=== PATIENT | female | born 1955 | race Caucasian/White ===

== ENCOUNTER 2016-10-06 09:03 | Emergency (ER) | payer OTHER, BC ==
[2016-10-06 09:37] VITALS: BP 147/78; PULSE 86; TEMP 98.3; BMI 25.4
--- NOTE | 2016-10-06 10:44 | PDOC ---
History of Present Illness - General Chief Complaint: Injury Stated Complaint: FALL, HEADACHE Time Seen by Provider: 10/06/16 09:52 History Source: Patient Exam Limitations: No Limitations - History of Present Illness Initial Comments: 10/06/16 10:39 CC fell on ice today; hitting back of head, no LOC Occurred: reports: this morning Severity: reports: mild Pain Location: reports: head Past History - Past Medical History Allergies/Adverse Reactions: Allergies Allergy/AdvReac Type Severity Reaction Status Date / Time No Known Allergies Allergy Verified 10/06/16 09:37 Cancer: Yes (lt breast) - Immunization History Immunization Up to Date: Yes (no flu) - Psycho/Social/Smoking Cessation Hx Anxiety: No Suicidal Ideation: No Smoking History: Former smoker Have you smoked in the past 12 months: No Information on smoking cessation initiated: No Hx Alcohol Use: No Drug/Substance Use Hx: No Substance Use Type: None Review of Systems - Review of Systems Constitutional: No: Chills, Fever, Malaise HEENTM: No: Blurred Vision, Recent change in vision, Double Vision, Cataracts Respiratory: No: Symptoms reported, Cough Cardiac (ROS): No: Symptoms Reported Musculoskeletal: Yes: Joint Pain Integumentary: No: Symptoms Reported Neurological: No: Headache, Numbness, Paresthesia, Pre-Existing Deficit, Tingling, Weakness *Physical Exam - Vital Signs Last Vital Signs Temp Pulse Resp BP Pulse Ox 98.3 F 86 20 147/78 98 10/06/16 09:34 10/06/16 09:34 10/06/16 09:34 10/06/16 09:34 10/06/16 09:34 - Physical Exam General Appearance: Yes: Appropriately Dressed, Apparent Distress HEENT: positive: TMs Normal, Other (FROM TMJ; mild STS to left occiput sclap, no skull deformity noted) Neck: positive: Supple. negative: Tender, Rigid, Tender lateral, Tender midline Respiratory/Chest: positive: Lungs Clear. negative: Chest Tender Musculoskeletal: positive: Other (no palp tenderness to right hip, ambulates well) Medical Decision Making - Medical Decision Making 10/06/16 10:42 reviewed danger signals with pt ; no imaging at this time *DC/Admit/Observation/Transfer Diagnosis at time of Disposition: Contusion of right hip, initial encounter Qualifiers: Encounter type: initial encounter Qualified Code(s): S70.01XA - Contusion of right hip, initial encounter Contusion of scalp, initial encounter Qualifiers: Encounter type: initial encounter Qualified Code(s): S00.03XA - Contusion of scalp, initial encounter Minor head injury without loss of consciousness Qualifiers: Encounter type: initial encounter Qualified Code(s): S09.90XA - Unspecified injury of head, initial encounter - Discharge Dispostion Disposition: HOME Condition at time of disposition: Stable Admit: No - Patient Instructions Additional Instructions: PLEASE RETURN FOR ANY NEW SYMPTOMS - Post Discharge Activity Work/School Note: Back to Work
[2016-10-06] MEDS ORDERED: IBUPROFEN 400 MG TABLET (FP) PO ONE ×2 (10:48→10:49)
== END 2016-10-06 10:49 | disposition home or self-care (01) ==
LOC: JERFT 09:03
DX: S00.03XA Contusion of scalp, initial encounter (principal); S70.01XA Contusion of right hip, initial encounter; W00.0XXA Fall on same level due to ice and snow, initial encounter; Y93.89 Activity, other specified; Y92.89 Other specified places as the place of occurrence of the external cause; Y99.8 Other external cause status
CPT/HCPCS: 99281-25

== ENCOUNTER 2016-12-15 09:24 | Inpatient (IN) | payer BC ==
--- NOTE | 2016-12-09 14:44 | HP ---
Addendum entered and electronically signed by Piper Fam 12/09/16 15:01: breast reconstruction Original Note: Admitting History and Physical - Primary Care Physician PCP: Jaskaran Cardenas - Admission Chief Complaint: recurrent left breast cancer History of Present Illness: 61 year old postmenapausal female with H/O left breast cancer 2002. S/P left breast wide excision ANDX 3+/14 nodes she underwent chemotherapy RT and femara for 5 years. 09/2016 mammogram showed leftretroareolar calcifications birad4. Left breast sterotactic core bx 11/2016 showed DCIS high grade. 11/2016 Breast MRI showed right breast negative left breast 1.3 cm enhancing mass in 10 to 11: 00 position left breast representing newly diagnosed left breast cancer History Source: Patient Limitations to Obtaining History: No Limitations - Past Medical History Additional Past Medical History: Left breast cancer 2002 with recurrence now - Past Surgical History Additional Past Surgical History: Left breast wide excision ANDX 3+/14 nodes RT chemo and femara x 5 years - Smoking History Smoking history: Former smoker Have you smoked in the past 12 months: No - Alcohol/Substance Use Hx Alcohol Use: No Home Medications - Allergies Allergies/Adverse Reactions: Allergies Allergy/AdvReac Type Severity Reaction Status Date / Time No Known Allergies Allergy Verified 10/06/16 09:37 - Home Medications Home Medications: Ambulatory Orders NK [No Known Home Medication] 10/06/16 Family Disease History - Family Disease History Family Disease History: CA: Father (lung ca), Brother (brother esophageal cancer ), Sister (breast ca 48) Physical Examination Constitutional: Yes: Well Nourished Breast(s): Yes: Other (No palpable masses or adenopathy bilaterallypost bx changes left breast) Assessment/Plan reucrrent left breast cancer Left total mastectomy sentenel node biopsy lymphoscintogram, possible dissection
[2016-12-11 17:07] VITALS: BMI 25.4
[2016-12-15] MEDS ORDERED: ceFAZolin SODIUM 1 GM VIAL ONE (09:48)
[2016-12-15] MEDS ORDERED: ISOSULFAN BLUE 10 MG/ML VIAL SQ ONE (09:48)
[2016-12-15] MEDS ORDERED: LIDOCAINE 1%-EPI 1:100,000 30 ML MDV IJ ONE (09:48)
[2016-12-15] MEDS ORDERED: GENTAMICIN SO4 80 MG/2 ML VIAL ONE (09:48)
[2016-12-15] MEDS ORDERED: MIDAZOLAM HCL 2 MG/2 ML SINGLE DOSE VIAL ONE (10:12)
[2016-12-15] MEDS ORDERED: BUPIVACAINE HCL/PF 2.5 MG/ML - 30 ML VIAL IJ ONE (10:12)
[2016-12-15] MEDS ORDERED: DEXAMETHASONE SOD PHOSPHATE/PF 10 MG/ML SDV ONE (10:12)
[2016-12-15] MEDS ORDERED: ONDANSETRON 4 MG/2 ML VIAL IVPB PRN (10:39)
[2016-12-15] MEDS ORDERED: ACETAMINOPHEN 325 MG TABLET (FP) PO PRN (10:39)
[2016-12-15] MEDS ORDERED: LORazepam 0.5 MG TABLET PO PRN (10:45)
[2016-12-15] MEDS ORDERED: ZOLPIDEM TARTRATE 5 MG TABLET PO PRN (11:05)
[2016-12-15] MEDS ORDERED: HYDROmorphone HCL/PF 1 MG/ML VIAL (FOR PYXIS CHARGING ONLY) ONE (11:12)
[2016-12-15] MEDS ORDERED: ROCURONIUM BROMIDE 50 MG/5 ML VIAL ONE (11:13)
[2016-12-15] MEDS ORDERED: PROPOFOL 20 ML ONE ×2 (11:13)
[2016-12-15] MEDS ORDERED: KETOROLAC TROMETHAMINE 30 MG/1 ML VIAL ONE (11:40)
[2016-12-15] MEDS ORDERED: DEXAMETHASONE SOD PHOSPHATE 4 MG/1 ML VIAL ONE (11:40)
[2016-12-15] MEDS ORDERED: ONDANSETRON 4 MG/2 ML VIAL ONE (11:40)
[2016-12-15] MEDS ORDERED: ePHEDrine SULFATE 50 MG/1 ML AMPULE ONE (12:32)
[2016-12-15] MEDS ORDERED: PROMETHAZINE HCL 25 MG/1 ML VIAL IVPUSH PRN (12:45)
[2016-12-15] MEDS ORDERED: HYDROmorphone HCL CARPU-JECT 1 MG/1 ML DISP.SYRIN IVPUSH PRN (12:45)
[2016-12-15] MEDS ORDERED: ONDANSETRON 4 MG/2 ML VIAL IVPUSH PRN (13:20)
[2016-12-15] MEDS ORDERED: CEFAZOLIN 1 GM/D5W 50 ML IVPB SCH (15:00)
[2016-12-15] MEDS ORDERED: NEOSTIGMINE METHYLSULFATE 0.5 MG/ML - 10 ML MDV ONE (15:03)
[2016-12-15] MEDS ORDERED: GLYCOPYRROLATE 0.2 MG/1 ML VIAL ONE (15:05)
--- NOTE | 2016-12-15 15:54 | SURG ---
Surgery Fan Blade Aligner Note Fan Blade Aligner: Valentin Leonard PA-C Date of Service: 12/15/16 Diagnosis: Breast cancer Procedure: Right breast reduction I was present ONLY for the reduction portion of the surgery procedure. the entirety of the operative procedure. For further detail, please refer to operative report. Visit type - Case Type Case Type: Scheduled Admission - New patient This patient is new to me today: Yes Date on this admission: 12/15/16
[2016-12-15] MEDS: ACETAMINOPHEN 1000 MG/100 ML VIAL (NON FORMULARY) IVPB ONE ×2 (16:10→17:27)
[2016-12-15] MEDS: DEXTROSE 5%-0.45% SALINE 1,000 ML IV SCH (17:27)
[2016-12-15] MEDS: LACTATED RINGERS SOLUTION 1,000 ML IV SCH (17:27)
[2016-12-15] MEDS: CEFAZOLIN 1 GM/D5W 50 ML IVPB SCH (17:57)
[2016-12-16] MEDS: traMADol HCL 50 MG TABLET PO PRN ×2 (00:13→06:55)
[2016-12-16] MEDS: CEFAZOLIN 1 GM/D5W 50 ML IVPB SCH ×5 (00:13→23:32)
[2016-12-16] MEDS: oxyCODONE HCL 5 MG TABLET PO PRN ×4 (00:13→23:32)
--- NOTE | 2016-12-16 07:57 | PN ---
Progress Note (short form) - Note Progress Note: POD 1 VSS AF All tissues viable, healing well GASPER thin and functioning OOB ambulating Urinating without soni Pain well controlled on PO SCD on Barring complication home tomorrow
[2016-12-16 09:02] LABS: MCH 32.4 pg (25.7-33.7); MCHC 34.4 g/dl (32.0-36.0); MEAN CELL VOLUME 94.4 fl (80-96); MEAN PLT VOLUME 8.4 fl (7.5-11.1); PLATELET COUNT 231 K/MM3 (134-434); RDW 12.9 % (11.6-15.6); WHITE BLOOD COUNT 15.3 K/mm3 (4.0-10.0)
[2016-12-16] MEDS: HEPARIN NA (PORCINE) 5,000 UNITS/ML 1ML VIAL SQ SCH ×2 (09:18→19:31)
--- NOTE | 2016-12-16 09:22 | PN ---
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 - Current Medication List Current Medications: Active Medications Acetaminophen (Tylenol -) 650 mg PO Q4H PRN PRN Reason: FEVER Heparin Sodium (Porcine) (Heparin -) 5,000 unit SQ BID@0800,2000 LUPE Hydromorphone HCl (Dilaudid Injection -) 0.5 mg IVPUSH [id number] PRN PRN Reason: PAIN Stop: 12/18/16 12:46 Dextrose/Sodium Chloride (D5-1/2ns -) 1,000 mls @ 100 mls/hr IV ASDIR [facility] Last Admin: 12/15/16 17:27 Dose: Not Given Lactated Ringer's (Lactated Ringers Solution) 1,000 mls @ 75 mls/hr IV ASDIR LUPE Last Admin: 12/15/16 17:27 Dose: Not Given Cefazolin Sodium (Ancef 1 Gm Premixed Ivpb -) 50 mls @ 100 mls/hr IVPB Q6H [facility] Last Admin: 12/16/16 06:16 Dose: 100 mls/hr Lorazepam (Ativan -) 0.5 mg PO ONCE PRN Ondansetron HCl (Zofran Injection) 4 mg IVPB Q6H PRN PRN Reason: NAUSEA AND/OR VOMITING Oxycodone HCl (Roxicodone -) 5 mg PO Q4H PRN PRN Reason: PAIN Last Admin: 12/16/16 06:54 Dose: 5 mg Tramadol HCl (Ultram -) 50 mg PO Q6H PRN PRN Reason: PAIN Last Admin: 12/16/16 06:55 Dose: 50 mg Zolpidem Tartrate (Ambien -) 5 mg PO HS PRN PRN Reason: Insomnia - Objective Vital Signs: Vital Signs Temperature 98.6 F 12/16/16 06:00 Pulse Rate 83 12/16/16 06:00 Respiratory Rate 18 12/16/16 06:00 Blood Pressure 113/61 12/16/16 06:00 O2 Sat by Pulse Oximetry (%) 96 12/16/16 06:00 Constitutional: Yes: No Distress Breast(s): Yes: Other (Biltareal flaps viable minimal exhymosis incision intact steristrips in place, no signs of infection, celestine drains funtioning) Labs: CBC, BMP 12/16/16 07:00 Problem List - Problems (1) Breast cancer, left breast Code(s): C50.912 - MALIGNANT NEOPLASM OF UNSPECIFIED SITE OF LEFT FEMALE BREAST Qualifiers: Breast location: unspecified site of breast Patient sex: female Qualified Code(s): C50.912 - Malignant neoplasm of unspecified site of left female breast Assessment/Plan IV antibiotics spirometry prepare for discharge tomorrow follow up with Dr Cardenas and Dr Sanchez postoperatively percocet prn
[2016-12-16] MEDS: DEXTROSE 5%-0.45% SALINE 1,000 ML IV SCH (11:26)
--- NOTE | 2016-12-16 11:42 | OP ---
DATE OF OPERATION: 12/15/2016 PREOPERATIVE DIAGNOSIS: Left breast cancer recurrence. POSTOPERATIVE DIAGNOSIS: Left breast cancer recurrence. PROCEDURE: Left total mastectomy. ANESTHESIA: General intubated. ATTENDING SURGEON: Hunter Cardenas MD CONTRACT PARALEGAL: VICENTE Johnson ESTIMATED BLOOD LOSS: Minimal. COMPLICATIONS: None. DESCRIPTION OF PROCEDURE: Patient was made aware of the risks and benefits of the procedure and consented. Patient went to Nuclear Medicine where technetium was injected into the indexed area. Patient was then placed in the supine position on the operating room table, and after general anesthesia was inducted, the patient was intubated. Unfortunately, using the Neoprobe, there was no uptake in the left axilla, which had undergone a prior axillary lymph node dissection. Therefore, a left total mastectomy was planned without axillary assessment. The operative site was prepped and draped in the usual sterile fashion. An elliptical incision was made around the breast encompassing the nipple and skin. Using electrocautery, skin flaps were made superior to the clavicle, medial to the sternum, lateral to the latissimus dorsi, and inferiorly to the inframammary fold. Using electrocautery, the breast tissue was taken off the pectoralis muscle and extended to the latissimus dorsi. Breast was then submitted with a short suture superior, long suture lateral. Specimen radiograph was then performed. Palpation of the rest of the axilla with further analysis with the Neoprobe showed no more uptake or suspicious lymph nodes. The procedure was then turned over to Dr. Jonatan Sanchez, who was planning to do a reconstruction. He will dictate his portion of the procedure. HUNTER CARDENAS M.D. [id number]
--- NOTE | 2016-12-16 11:57 | PN ---
Progress Note (short form) - Note Progress Note: 61 yo female POD#1 s/p Left mastectomy, left lymph node biopsy, left breast reconstruction and right breast reduction. Patient is doing well. Minimal pain. Adequate relief with PO meds. Patient is ambulating. Vitals as charted. Afebrile. Cont current care.
[2016-12-16] MEDS: LACTATED RINGERS SOLUTION 1,000 ML IV SCH (12:40)
--- NOTE | 2016-12-16 15:37 | OP ---
DATE OF OPERATION: 12/15/2016 TITLE OF PROCEDURE: Left breast reconstruction with tissue golf course starter acellular dermal matrix and right-sided balancing breast reduction. SPY intraoperative angiography. ATTENDING SURGEON: Jonatan Duenas MD The procedure was performed in combination with a left-sided mastectomy performed by Dr. Jaskaran Cardenas. That portion of the procedure will be dictated by Dr. Cardenas. The patient is marked in the holding area for the planned mastectomy scars, as well as the planned breast reduction. She is awake, aware of all incisions and resulting scars. All risks, benefits and alternatives to the procedure are discussed with the patient who understands and agrees to proceed. The patient is given LENARD hose and SCDs in the holding area. She is then brought to the operating room, placed in the supine position. Positioning and draping are performed by Dr. Cardenas and his team where the mastectomy is begun, prior to my arrival. The patient received a gram of Ancef preoperatively. A timeout is called. Patient, procedure, side and sites are verified. Upon my scrubbing and entering the case, the right side is addressed. The nipple areola is marked with a 45-mm cookie cutter, at which point a 9-cm width pedicle is marked inferiorly based. With the breast skin under tension, the 45-mm nipple areola is traced and the pedicle is de-epithelialized with the exception of the nipple areola. At this point, skin flaps are developed superiorly, medially and laterally down to the level of the chest wall. The pedicle is then developed to the level of the chest wall with a wide fibroglandular base. The resected weight is 216 g. Hemostasis meticulously achieved. A size 10 flat GASPER drain is brought out through the lateral extent of the incisions and secured with a 2-0 silk drain suture. Closure of the reduced breast is then performed with a half-buried mattress 2-0 nylon suture at the inferior inverted "T" point, followed by a series of buried deep dermal 3-0 Monocryl suture on the vertical and horizontal limbs, as well as the nipple areola in through the keyhole pattern. The nipple areola is then inset with a running subcuticular 4-0 Monocryl suture. The vertical and horizontal limbs are closed with a running subcuticular 3-0 Monocryl suture. All tissues are pink and viable, at the end of this portion of the procedure. The nipple has been set at 21 cm from the sternal notch. Attention is then directed toward the left breast, after the mastectomy is completed. Meticulous hemostasis is then achieved. The pectoralis muscle is then elevated and disinserted from the costal margin as well as the inferior-medial sternal attachment. AlloDerm is brought onto the field. It is rinsed with a triple antibiotic solution. Using a 2-0 PDS suture, it is secured to the previously marked chest wall with a running locking 2-0 PDS suture medially, inferiorly and laterally. The AlloDerm is oriented with the dermal side facing superficially. The pocket is then copiously irrigated with triple antibiotic solution. The triple antibiotic solution contains a liter of normal saline, a gram of Ancef, 50,000 units of bacitracin, and 80 mg of gentamicin. Using new gloves and a sterile technique, the tissue golf course starter is then brought onto the field, evacuated of air. The tissue golf course starter used in this case is an Sol[place]ingan NatAdeyohe 133 SX-T-13 golf course starter. It is oriented and placed into the pocket deep to the acellular dermal matrix. It has suture tabs which are secured with 2-0 PDS suture. The superior border of the AlloDerm is then closed to the inferior border of the pectoralis major muscle with a running 2-0 PDS suture. Using the Magna-Finder, the access port is identified and using a closed filling system, the golf course starter is inflated 200 mL of normal saline. At this point, the SPY indocyanine intraoperative angiogram machine is brought onto the field, sterilely draped, and after infusion of indocyanine, perfusion of the flaps is assessed. There is a section of the inferior-lateral mastectomy flap that appears poorly perfused. This is marked. It is determined that there is adequate skin laxity on the superior flap to compensate for this excision. The hypoperfused area is excised and the skin is then tailor-tacked. The wound is copiously irrigated with triple antibiotic solution, once again. Size 10 flat GASPER drains are brought out through separate lateral stab wound incisions and secured with 2-0 silk drain sutures. One drain is in the inferior recess of the wound. A second drain is in the lateral and superior recesses of the wound. The flaps are closed first with a deep capsular running 3-0 Monocryl suture, followed by a running locking buried deep dermal 3-0 Monocryl suture, followed by a running subcuticular 3-0 Monocryl suture. The drains are all placed to bulb suction. The wound is dressed with 1/2-inch, full-length Steri-Strips, ABD and 4 x 4 gauze. A surgical bra is applied. The patient is awoken from anesthesia without complication and transferred to recovery. JONATAN DUENAS M.D. [id number]
[2016-12-17 06:40] VITALS: BP 116/59; PULSE 74; TEMP 99
[2016-12-17] MEDS: oxyCODONE HCL 5 MG TABLET PO PRN ×2 (06:42→13:08)
[2016-12-17] MEDS: CEFAZOLIN 1 GM/D5W 50 ML IVPB SCH ×2 (06:43→11:36)
--- NOTE | 2016-12-17 08:14 | PN ---
Progress Note (short form) - Note Progress Note: VSS AF All tissues viable, no collections Pain well controlled on PO Ambulating, leonor PO OK for discharge with drain instructions today
[2016-12-17] MEDS: HEPARIN NA (PORCINE) 5,000 UNITS/ML 1ML VIAL SQ SCH (08:18)
[2016-12-17] MEDS: DEXTROSE 5%-0.45% SALINE 1,000 ML IV SCH (10:04)
[2016-12-17] MEDS: LACTATED RINGERS SOLUTION 1,000 ML IV SCH (13:08)
--- NOTE | 2016-12-18 15:09 | PATH ---
Surgical Pathology Report Patient Name: DAMON STANFORD Med. Rec. #: [id number] /Age/Gender: 1955 (Age: 61) / F Account: [id number] Location: [facility] MED-SURG Taken: 12/15/2016 Received: 12/15/2016 Reported: 12/18/2016 Physicians: Jaskaran Cardenas M.D. Specimen(s) Received A: RIGHT BREAST SKIN AND TISSUE B: LEFT BREAST TOTAL MASTECTOMY Clinical History DCIS Final Diagnosis A. RIGHT BREAST, REDUCTION MAMMOPLASTY: LOBULAR CARCINOMA IN SITU (LCIS), PLEOMORPHIC AND CLASSICAL TYPES. REMAINING BREAST TISSUE WITH FIBROCYSTIC CHANGES INCLUDING USUAL DUCTAL HYPERPLASIA (UDH), SCLEROSING ADENOSIS, STROMAL FIBROSIS AND ELASTOSIS, DUCTAL DILATATION, AND CYSTIC APOCRINE METAPLASIA. UNREMARKABLE SKIN PRESENT. B. 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 CARCINOMA MEASURES 1.7 CM IN GREATEST DIMENSION. MINOR COMPONENT OF DUCTAL CARCINOMA IN SITU (DCIS), HIGH NUCLEAR GRADE, SOLID PATTERN WITH CENTRAL NECROSIS AND ASSOCIATED CALCIFICATION. INVASIVE CARCINOMA IS 0.5 CM FROM THE ANTERIOR MARGIN, AND DCIS IS 0.9 CM FROM THE ANTERIOR MARGIN, AND ALL MARGINS OF EXCISION ARE FREE OF CARCINOMA. NO LYMPH-VASCULAR INVASION OR INVOLVEMENT OF OVERLYING SKIN OR NIPPLE IDENTIFIED. REMAINING BREAST TISSUE FIBROCYSTIC CHANGES INCLUDING STROMAL FIBROSIS AND DUCTAL DILATATION, WITH RARE ASSOCIATED CALCIFICATION. ADDITIONAL AREAS OF FAT NECROSIS AND FIBROSIS PRESENT. Comment: This case was discussed with Dr. Jaskaran Cardenas on December 18, 2016. Also see prior slide review [id number]. Immunohistochemical stain for E-Cadherin performed and interpreted at [facility] on block A3 show the neoplastic cells in the right breast to be negative for E-Cadherin, consistent with lobular phenotype. Immunohistochemical stains performed and interpreted at [facility] on block B3 show the following results: Smooth muscle myosin heavy chain and p63 show loss of the myoepithelial cell layer in the areas of invasive carcinoma. E-Cadherin is positive, consistent with ductal phenotype. Immunohistochemical stain for SIL performed at [place], [place] ([id number]) and interpreted at [facility] shows the carcinoma to be positive, with some areas suggestive of an "inside out" pattern as is seen in invasive micropapillary carcinoma. Comments Breast Invasive Carcinoma: Surgical Pathology Cancer Case Summary Based on AJCC/UICC TNM, 7th edition Procedure _X__ Total mastectomy (including nipple and skin) Specimen Laterality _X__ Left Tumor Size: Size of Largest Invasive Carcinoma Greatest dimension of largest focus of invasion over 1 mm: 17 mm Tumor Focality _X__ Single focus of invasive carcinoma Macroscopic and Microscopic Extent of Tumor Skin _X__ Invasive carcinoma does not invade into the dermis or epidermis Nipple _X__ DCIS does not involve the nipple epidermis Ductal Carcinoma In Situ (DCIS) _X__ DCIS is present _X__ as a minor component (< 25% of tumor) Histologic Type of Invasive Carcinoma : _X__ Invasive carcinoma with micropapillary and mucinous features Histologic Grade: ([place] Histologic Score) Tubular Differentiation _X__ Score 3 Nuclear Pleomorphism _X__ Score 3 Mitotic Rate _X__ Score 2 Overall Grade _X__ Grade 3: scores of 8 or 9 (poorly differentiated) Margins _X__ Margins uninvolved by invasive carcinoma (required only if residual invasive carcinoma is present in specimen) Distance from closest margin: 5 mm Specify margin: ANTERIOR _X__ Margins uninvolved by DCIS (required only if residual DCIS is present in specimen) Distance from closest margin: 9 mm Specify margin: ANTERIOR Lymph-Vascular Invasion _X__ Not identified Lymph Nodes Total number of lymph nodes examined (sentinel and nonsentinel): 0 Number of sentinel lymph nodes examined: 0 Number of lymph nodes with macrometastases ( > 2 mm): 0 Number of lymph nodes with micrometastases (>0.2 mm to 2 mm and/or >200cells):0 Number of lymph nodes with isolated tumor cells (=0.2 mm and =200 cells): 0 Extranodal Extension _X__ Not applicable Pathologic Staging (pTNM) Primary Tumor (Invasive Carcinoma): pT1c Regional Lymph Nodes (pN): pNX Results of ER and SD studies performed on this specimen (block B3) at [facility] are as follows: ER (clone [id number] mouse monoclonal antibody by [employer]): 80% nuclear staining with strong intensity (Positive). SD (clone16 mouse monoclonal antibody by [employer]) : <1% nuclear staining (Negative). Results of Her2 (IHC) & Ki-67 studies performed on this specimen (blockB3) at [place], [place] ( [id number]) are as follows: Her2 IHC (EP3 from [employer], formerly known as [id number], using [employer] Polymer Refine detection kit): 2+ Equivocal Ki67: ~60% (High proliferative index) Results of Her2 FISH studies will be reported separately in an addendum. Positive and negative controls (internal if applicable) show appropriate results. Formalin fixation and cold ischemic times are within current ASCO/CAP recommendations for ER, SD and Her2 testing. Electronically Signed Jagjit Lugo M.D. Addendum Reported: 12/22/2016 Addendum Diagnosis Results of Her2 FISH studies performed on block "B3" at [place], [place] ([id number]) are as follows: Her2: 14.7 CEP17: 4.1 Ratio: 3.6 Interpretation: Positive Jagjit Lugo M.D. Gross Description A. Received in formalin labeled "right breast skin and tissue 216 g," is an 18.5 x 12.0 x 3.3 cm aggregate of irregular, unoriented portions of fibroadipose tissue and porter, unremarkable skin. Sectioning reveals multiple foci of dense, white, focally firm fibrous tissue. No definitive masses are identified. Reel Worker sections are submitted in 4 cassettes. After review of the initial sections, an additional 6 cassettes of breast tissue are submitted for total of 10 cassettes. B. Received in formalin, labeled "left breast total mastectomy 868 g," is a 19.0 x 16.0 x 5.2 cm. left mastectomy specimen with a short suture marking the superior aspect and a long suture marking the lateral aspect of the specimen, per the surgeon. The anterior surface displays an 18.0 x 8.0 cm porter, elliptical portion of skin with a 1.1 cm diameter nipple. The deep margin is inked black and the anterior soft tissue margin is inked blue. The specimen is serially sectioned from medial to lateral. Sectioning reveals 1.8 x 1.5 x 1.0 cm porter, indurated mass in the upper inner quadrant (UIQ). The mass is focally at 0.4 cm from the anterior soft tissue margin. The remaining breast parenchyma displays multiple foci of dense, white, focally firm fibrous tissue. Reel Worker sections are submitted in 18 cassettes as follows: 1-serially sectioned nipple; 2-subareolar shave; 3-fullface section of UIQ mass with anterior soft tissue margin; 4-additional UIQ mass with anterior soft tissue margin; 5-additional UIQ mass; 6-uninvolved UIQ tissue; 8-63-oruznvnodcyn tissue; 11-lower inner quadrant; 12-13-upper outer quadrant; 14-15-lower outer quadrant; 16-additional anterior soft tissue margin; 17-skin; 18-deep margin. Time to formalin fixation: 1 hour Total formalin fixation time: Approximately 28 hours. 12/16/2016 saudi12/16/2016
== END 2016-12-17 13:15 | disposition home or self-care (01) | DRG 583 ==
LOC: FM/S 09:24
PROVIDERS: ADMIT Surgery Surgical Oncology; ATTEND Surgery Surgical Oncology
PROC: 0HTU0ZZ Resection of Left Breast, Open Approach (ICD-10-PCS; principal; 2016-12-15 11:52)
PROC: 0HHU0NZ Insertion of Tissue Expander into Left Breast, Open Approach (ICD-10-PCS; 2016-12-15 11:52)
PROC: 0HBT0ZZ Excision of Right Breast, Open Approach (ICD-10-PCS; 2016-12-15 11:52)
DX: C50.912 Malignant neoplasm of unspecified site of left female breast (principal); Z85.3 Personal history of malignant neoplasm of breast
CPT/HCPCS: 36415; 78195-TC; 85027; 88305-TC; 88307-TC; 88341-TC; 94760; A9541; J1644